=== PATIENT | female | born 1985 | race Caucasian/White ===

== ENCOUNTER 2016-10-23 22:04 | Emergency (ER) | payer OTHER ==
[2016-10-23 22:17] VITALS: RESP 18; O2SAT 98
[2016-10-23] MEDS ORDERED: IPRATROPIUM/ALBUTEROL 3 ML DEYVIAL IH ONE (22:38)
--- NOTE | 2016-10-23 22:44 | EDPHY ---
H & P Stated Complaint: COUGH, SINUS, EAR PAIN X 7 DAYS, AMOX 1000MG BID, RASH MON Time Seen by Provider: 10/23/16 22:25 HPI/ROS: HPI The patient presents with cough which has been present for the last 3 days which is productive of sputum and has been constant and getting progressively worse. It has caused her to have worsening of her occasional lower back pain. She was seen about 1 week ago for a sore throat and laryngitis at an urgent care , rapid strep was negative., she was started on amoxicillin for sinus infection. She followed up with her PMD, who thought that this was more likely a viral illness and encouraged her to stop the amoxicillin. However, because her symptoms did not improve, she began taking the amoxicillin again. She does not have any shortness of breath or chest pain. She was around some children with pneumonia last week. She did have a fever during the week as high as 100.4 REVIEW OF SYSTEMS Constitutional: Positive for fever Eyes: No discharge. ENT: No sore throat. Cardiovascular: No chest pain, no palpitations. Respiratory: See HPI Gastrointestinal: No abdominal pain, no vomiting. Genitourinary: No hematuria. Musculoskeletal: Positive for back pain. Skin: No rashes. Neurological: No headache. PMHx: GERD Soc Hx: Nonsmoker PHYSICAL General Appearance: Alert, no distress Eyes: Pupils equal and round no pallor or injection ENT, Mouth: Mucous membranes moist, posterior pharynx is slightly erythematous without exudate, TMs clear bilaterally Respiratory: There are no retractions, lungs are clear to auscultation Cardiovascular: Regular rate and rhythm Gastrointestinal: Abdomen is soft and non-tender, no masses, bowel sounds normal Neurological: A&O, moves all extremities Skin: Warm and dry, no rashes Musculoskeletal: Neck is supple non tender Extremities: symmetrical, full range of motion Psychiatric: Patient is oriented X 3, there is no agitation Source: Patient Exam Limitations: No limitations - Personal History LMP (Females 10-55): 8-14 Days Ago Current Tetanus/Diphtheria Vaccine: Unsure - Medical/Surgical History Hx Asthma: No Hx Chronic Respiratory Disease: No Hx Diabetes: No Hx Cardiac Disease: No Hx Renal Disease: No Hx Cirrhosis: No Hx Alcoholism: No Hx HIV/AIDS: No Hx Splenectomy or Spleen Trauma: No Other PMH: TONSILS, WISDOM TEETH, HYPOTHYROID, LYME DISEASE, GERD - Social History Smoking Status: Never smoked Constitutional: Initial Vital Signs Temperature (C) 36.5 C 10/23/16 22:07 Heart Rate 87 10/23/16 22:07 Respiratory Rate 18 10/23/16 22:07 Blood Pressure 107/61 10/23/16 22:07 O2 Sat (%) 98 10/23/16 22:07 O2 Delivery Mode Room Air Allergies/Adverse Reactions: No Allergies [NKA] Allergy (Verified 10/23/16 22:13) Home Medications: Medication Instructions Recorded AMINO ACID 10/23/16 Active T3 10/23/16 Benzonatate [Tessalon Pearles (RX)] 100 mg PO TID PRN #30 cap 10/23/16 Betaine HCl/Lactic Acid/Water 10/23/16 Digestive Enzyme 10/23/16 Glutahione 10/23/16 Glutamine 10/23/16 LYSINE 10/23/16 Multimineral 10/23/16 Pantoprazole Sodium 10/23/16 Probiotic 10/23/16 Selenium 10/23/16 Synthroid 10/23/16 VITAMIN D 10/23/16 ZINC 10/23/16 Medical Decision Making - Diagnostics Imaging Results: Imaging Impressions Chest X-Ray 10/23/16 22:38 Impression: Mild perihilar bronchitis/reactive airways' disease, with no focal infiltrate. Differential Diagnosis: This is a 31-year-old female who is healthy who presents with several days of productive cough associated with fever. Preceding this, she had sore throat, rhinorrhea, headache, consistent with sinus infection. She is currently taking amoxicillin. Differential diagnosis includes postnasal drip from sinusitis, pneumonia, viral illness. In the emergency room, chest x-ray was performed which did not demonstrate any infiltrates or signs of pneumonia. She received a DuoNeb, which did not help her symptoms. I will issue her Lidoderm patch for the muscular pain she is having with this cough. I have prescribed her Tessalon Perles. She is to follow up with her primary care doctor if she is not better in the next few days. - Data Points Medications Given: Discontinued Medications Albuterol/Ipratropium (Duoneb) 3 ml IH EDNOW ONE Stop: 10/23/16 22:39 Last Admin: 10/23/16 22:59 Dose: 3 ml Lidocaine (Lidoderm 5%) 1 ea TD DAILY MARILOU Stop: 04/21/17 23:29 Last Admin: 10/23/16 23:28 Dose: 1 ea Departure - Departure Disposition: Home, Routine, Self-Care Clinical Impression: Cough, Viral illness Back pain Qualifiers: Back pain location: low back pain Chronicity: acute Back pain laterality: unspecified Sciatica presence: without sciatica Qualified Code(s): M54.5 - Low back pain Condition: Good Instructions: Viral Syndrome (ED) Referrals: CHELSIE CAMERON [Other] - As per Instructions Prescriptions: Benzonatate [Tessalon Pearles (RX)] 100 mg PO TID PRN #30 cap PRN Reason: Cough, Mild
[2016-10-23 23:29] VITALS: BP 104/52; PULSE 98; TEMP 98.8
[2016-10-23] MEDS ORDERED: LIDOCAINE 5% 1 EA PATCH TD SCH (23:30)
[2016-10-24] MEDS ORDERED: PATCH REMOVAL 1 EA PATCH TD SCH (21:00)
== END 2016-10-23 23:29 | disposition home or self-care (01) ==
DX: B34.9 Viral infection, unspecified (principal); M54.5 Low back pain